=== PATIENT | female | born 1995 | race Caucasian/White ===

== ENCOUNTER 2023-06-22 12:47 | Outpatient (CLI) | payer OTHER ==
--- NOTE | 2023-06-22 15:23 | MRI Report ---
Hip LT WO CLINICAL HISTORY: 27 years of age, Female, HIP PAIN. COMPARISON: None Technique: Multisequence, multiplanar MRI of the left hip was performed without contrast. IV CONTRAST: Not given FINDINGS: Labrum: Anterior superior labral tear. Ligaments: Unremarkable. Tendons: The left iliopsoas, adductor, hamstring, and gluteal minimus unremarkable. Mild peritendinit is of the gluteal medius at the greater trochanteric insertion. Osseous and cartilaginous structures: Normal bone marrow signal and normal morphology without evidenc e of dysplasia, edema, fracture, or avascular necrosis. No definite chondral thinning or irregularity . Sacroiliac joints and spine: The sacroiliac joints are unremarkable. Visualized portions of the lower lumbar spine are within normal limits. Miscellaneous: The visualized musculature demonstrates normal signal and morphology without evidence of strain or tear. IMPRESSION: 1.Anterior superior labral tear. 2.Mild peritendinitis of the gluteal minimus at the greater trochanteric insertion. Body part: LEFT hip. Reviewed by: Rachele Thakkar MD on 06/22/2023 3:22 PM PDT Approved by: Rachele Thakkar MD on 06/22/2023 3:22 PM PDT Station ID: [id number]
--- NOTE | 2023-06-22 15:31 | MRI Report ---
Hip RT WO CLINICAL HISTORY: 27 years of age, Female, HIP PAIN. COMPARISON: None Technique: Multisequence, multiplanar MRI of the right hip was performed without contrast. IV CONTRAST: Not given FINDINGS: Labrum: Posterior labral tear. No paralabral cysts. Ligaments: Unremarkable. Tendons: The iliopsoas, adductor, hamstring, and gluteal minimus tendon are unremarkable. Mild perite ndinitis of the gluteal medius at the greater trochanteric insertion. Osseous and cartilaginous structures: Mild subchondral cystic changes at the anterior femoral head, d egenerative. No acute fracture. No avascular necrosis. No focal chondral defect. Sacroiliac joints and spine: The sacroiliac joints are unremarkable. Visualized portions of the lower lumbar spine are within normal limits. Miscellaneous: The visualized musculature demonstrates normal signal and morphology without evidence of strain or tear. IMPRESSION: 1.Posterior labral tear. 2.Mild peritendinitis of the gluteal medius at the greater trochanteric insertion. 3.Mild subchondral cystic changes at the anterior femoral head, degenerative. Body part: RIGHT hip. Reviewed by: Rachele Thakkar MD on 06/22/2023 3:30 PM PDT Approved by: Rachele Thakkar MD on 06/22/2023 3:30 PM PDT Station ID: [id number]
== END 2023-06-22 12:48 | disposition home or self-care (01) ==
LOC: DI 12:47
PROVIDERS: ATTEND Family Medicine
DX: S73.101A Unspecified sprain of right hip, initial encounter (principal); M76.891 Other specified enthesopathies of right lower limb, excluding foot; M85.68 Other cyst of bone, other site; S73.102A Unspecified sprain of left hip, initial encounter; M76.892 Other specified enthesopathies of left lower limb, excluding foot